=== PATIENT | male | born 1955 | race Caucasian/White ===

== ENCOUNTER 2020-09-24 15:05 | Outpatient (CLI) | payer MEDICARE, MEDICAID, SELFPAY ==
--- NOTE | 2020-09-24 15:12 | MR_ITS ---
WS: [id number] MRI BRAIN WITH HIGH-RESOLUTION IMAGING THROUGH THE INTERNAL AUDITORY CANALS WITHOUT AND WITH CONTRAST HISTORY: IRMA SENSORINEURAL HEARING LOSS COMPARISON: None available. TECHNIQUE: Multiplanar, multisequence imaging is performed through the brain. Additional 3 mm imaging performed in multiple planes through the internal auditory canal. Postcontrast imaging with 20 ml's of MultiHance. No acute intracranial hemorrhage, midline shift, edema or mass effect. No acute infarct. No significant small vessel microvascular ischemic disease. No prior infarcts. 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 No distal vertebral artery is identified. LEFT vertebral artery is dominant. Moderate narrowing of the RIGHT M1 segment. This is asymmetric to the LEFT. No an eurysms are identified. No enhancing masses. No filling defects in the dural venous sinuses. Ventricles and extra-axial spaces are normal. No inferior displacement of cerebellar tonsils. Clivus and pituitary gland are normal. Internal and external auditory canals: Unremarkable. Cranial nerves VII and VIII complexes: Unremarkable. No enhancement or mass. Cerebellopontine angles: Normal. Paranasal sinuses: Mild mucoperiosteal thickening in the sphenoid sinuses. No air-fluid levels. Mastoid air cells: Small amount of fluid in the RIGHT mastoid air cells. No air-fluid levels. Calvarium and scalp: Normal. Visualized [place] and dural venous sinuses demonstrate no abnormality. MR/MR iac's wo/w con* [id number] IMPRESSION: 1. Unremarkable internal auditory canals. No mass is. 2. No significant chronic microvascular ischemic disease or infarct. 3. Moderate stenosis distal RIGHT M1 segment. 4. Mild RIGHT mastoid air cell effusion.
[2020-09-24] MEDS: gadobenate dimeglumine 20 mL vial IV (16:23)
== END 2020-09-24 15:06 | disposition home or self-care (01) ==
LOC: RADSHAW 15:11
PROVIDERS: PCP Family Medicine; Visit Provider Specialist
DX: H90.3 Sensorineural hearing loss, bilateral (principal)
CPT/HCPCS: 70553; A9577

== ENCOUNTER → 2021-03-31 13:57 | Outpatient (BNVA) | payer MEDICARE, MEDICAID, SELFPAY | PROVIDERS: PCP Family Medicine; Visit Provider Specialist | DX: G47.52 REM sleep behavior disorder (principal) | CPT/HCPCS: 99204; 99205 ==

== ENCOUNTER 2021-04-27 20:00 | Outpatient (CLI) | payer MEDICARE, MEDICAID, SELFPAY | END 2021-04-27 20:01 | disposition home or self-care (01) | LOC: SLEEP 04-28 09:22 | PROVIDERS: PCP Family Medicine; Visit Provider Specialist | DX: G47.52 REM sleep behavior disorder (principal) | CPT/HCPCS: 95810 ==

== ENCOUNTER → 2021-05-14 13:59 | Outpatient (BNVA) | payer MEDICARE, MEDICAID, SELFPAY | PROVIDERS: PCP Family Medicine; Referring Provider Specialist; Visit Provider Specialist | DX: G47.52 REM sleep behavior disorder (principal) | CPT/HCPCS: 95816 ==

== ENCOUNTER → 2021-06-30 14:25 | Outpatient (BNVA) | payer MEDICARE, MEDICAID, SELFPAY | PROVIDERS: PCP Family Medicine; Visit Provider Specialist | DX: G47.52 REM sleep behavior disorder (principal) | CPT/HCPCS: 99214 ==

== ENCOUNTER → 2021-12-02 09:40 | Outpatient (BNVA) | payer MEDICARE, MEDICAID, SELFPAY | PROVIDERS: PCP Family Medicine; Visit Provider Specialist | DX: G47.52 REM sleep behavior disorder (principal) | CPT/HCPCS: 99214 ==

== ENCOUNTER → 2022-06-02 08:30 | Outpatient (BNVA) | payer MEDICARE, MEDICAID, SELFPAY | PROVIDERS: PCP Family Medicine Sports Medicine; Visit Provider Specialist | DX: G47.52 REM sleep behavior disorder (principal); F51.5 Nightmare disorder; F51.3 Sleepwalking [somnambulism]; F41.9 Anxiety disorder, unspecified | CPT/HCPCS: 99214 ==

== ENCOUNTER → 2022-12-01 14:08 | Outpatient (BNVA) | payer MEDICARE, MEDICAID, SELFPAY | PROVIDERS: PCP Family Medicine; Visit Provider Specialist | DX: G47.52 REM sleep behavior disorder (principal) | CPT/HCPCS: 99213 ==

== ENCOUNTER → 2023-05-31 11:55 | Outpatient (BNVA) | payer MEDICARE, MEDICAID, SELFPAY | PROVIDERS: PCP Family Medicine; Visit Provider Specialist | DX: G47.52 REM sleep behavior disorder (principal); F41.9 Anxiety disorder, unspecified | CPT/HCPCS: 99214 ==

== ENCOUNTER → 2023-12-07 13:10 | Outpatient (BNVA) | payer OTHER, MEDICAID, MEDICARE, SELFPAY | PROVIDERS: PCP Family Medicine; Visit Provider Specialist | DX: G47.52 REM sleep behavior disorder (principal); R29.90 Unspecified symptoms and signs involving the nervous system; R01.1 Cardiac murmur, unspecified | CPT/HCPCS: 99213 ==

== ENCOUNTER 2023-12-26 12:17 | Outpatient (CLI) | payer OTHER, MEDICAID, SELFPAY ==
--- NOTE | 2023-12-26 12:45 | USCV_ITS ---
Lam Valiente Age: 68 Gender: M : 1955 Exam Date: 12/26/2023 12:51 Ordering Phys: Marley Porter MD Technologist: Exam Location: [facility] [place] Indication: BP: 132 / 73 HR: 60 Rhythm: Sinus Technical Quality: Adequate MEASUREMENTS (Male / Female) Normal Values 2D ECHO LV Diastolic Diameter PLAX 5.5 cm 4.2 - 5.9 / 3.9 - 5.3 cm IVS Diastolic Thickness 1.0 cm 0.6 - 1.0 / 0.6 - 0.9 cm IVS Systolic Thickness 1.8 cm LVPW Diastolic Thickness 1.0 cm 0.6 - 1.0 / 0.6 - 0.9 cm LVPW Systolic Thickness 1.5 cm LV Ejection Fraction 2D Teich 66.0 % LV Ejection Fraction MOD 2C 68.2 % LV Ejection Fraction 2C AL 68.7 % LA Diameter 2.1 cm IVC Diameter 1.8 cm M-MODE LA Ao Ratio MM 0.9 AV Cusp Separation MM 1.8 cm DOPPLER AV Peak Velocity 253.0 cm/s LVOT Peak Velocity 94.0 cm/s MV Area PHT 2.9 cm squared Mitral E to A Ratio 0.8 TR Peak Velocity 95.0 cm/s TR Peak Gradient 3.6 mmHg TV Peak E Velocity 82.0 cm/s Right Atrial Pressure 3.0 mmHg Pulmonary Artery Systolic Pressu 6.6 mmHg PV Peak Velocity 114.0 cm/s FINDINGS Left Ventricle Left ventricle is normal in size. LV systolic function is normal with EF 55 to 60%. No regional wall motion abnormalities are seen. Grade 1 diastolic dysfunction Right Ventricle Normal in size and function Right Atrium Normal in size Left Atrium Normal in size Mitral Valve Structurally normal mitral valve. Trace mitral regurgitation Aortic Valve Aortic valve is thickened and calcified. Mild aortic stenosis with mean gradient of 12 mmHg Tricuspid Valve Insufficient TR jet to calculate RVSP Pulmonic Valve Not well visualized Pericardium Normal Aorta Ascending aorta is dilated with diameter of 3.86cm IVC Appears to be normal CONCLUSIONS LV systolic function is normal with EF 55 to 60%. Grade 1 diastolic dysfunction. Trace mitral regurgitation. Mild aortic stenosis. Ascending aorta is dilated with diameter of 3.86 cm No comparison studies are available Leonard Tapia MD (Electronically Signed) Final Date: 06 January 2024 19:26 S
== END 2023-12-26 12:18 | disposition home or self-care (01) ==
LOC: RAD 12:18
PROVIDERS: PCP Family Medicine; Visit Provider Specialist
DX: I35.0 Nonrheumatic aortic (valve) stenosis (principal); I50.30 Unspecified diastolic (congestive) heart failure
CPT/HCPCS: 93306

== ENCOUNTER → 2024-06-06 13:59 | Outpatient (BNVA) | payer OTHER, MEDICAID, SELFPAY | PROVIDERS: PCP Family Medicine; Visit Provider Specialist | DX: G47.52 REM sleep behavior disorder (principal); R29.90 Unspecified symptoms and signs involving the nervous system; R01.1 Cardiac murmur, unspecified; R03.0 Elevated blood-pressure reading, without diagnosis of hypertension | CPT/HCPCS: 99214 ==